=== PATIENT | male | born 1950 | race Caucasian/White ===

== ENCOUNTER 2019-06-20 19:41 | Emergency (ER) | payer OTHER, MEDICARE ==
[~2019-06-20] VITALS: Ht 172.7 cm; Wt 81.8 kg
[2019-06-20] MEDS ORDERED: 0.9 % SODIUM CHLORIDE 10 ML DISP.SYRIN. IV PRN (19:45)
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
[2019-06-20] MEDS ORDERED: IOHEXOL 300 MG/ML 75 ML VIAL. IV ONE (20:00)
[2019-06-20] MEDS ORDERED: LIDOCAINE 1% 50 ML VIAL. IV ONE (20:00)
[2019-06-20] MEDS ORDERED: CONTRAST GIVEN MC PRN (20:15)
[2019-06-20 20:41] LABS: BASO # 0.1 x10^3/uL (0.0-0.2); BASO % 1 % (0-3); EOS # 0.1 x10^3/uL (0.0-0.7); EOS % 1 % (0-3); HEMATOCRIT 43.4 % (39.0-53.0); HEMOGLOBIN 14.3 g/dL (13.0-17.5); LYMPH % 14 % (24-48); MEAN CORPUSCULAR HEMOGLOBIN 32 pg (25-35); MEAN CORPUSCULAR HGB CONC 33 g/dL (31-37); MEAN CORPUSCULAR VOLUME 96 fL (79-100); MONO % 7 % (0-9); NEUT # 11.3 x10^3uL (1.8-7.7); NEUT % 78 % (31-73); PLATELET COUNT 235 x10^3/uL (140-400); RED BLOOD COUNT 4.54 x10^6/uL (4.30-5.70); RED CELL DISTRIBUTION WIDTH 13.1 % (11.5-14.5); WHITE BLOOD COUNT 14.5 x10^3/uL (4.0-11.0)
[2019-06-20 20:51] LABS: CALCIUM 8.9 mg/dL (8.5-10.1); CREATININE 1.1 mg/dL (0.7-1.3); GFR 66.8; POTASSIUM 3.3 mmol/L (3.5-5.1)
[2019-06-20 20:58] LABS: ALBUMIN 3.8 g/dL (3.4-5.0); ALBUMIN/GLOBULIN RATIO 1.3 (1.0-1.7); TOTAL BILIRUBIN 0.3 mg/dL (0.2-1.0); TOTAL PROTEIN 6.7 g/dL (6.4-8.2)
[2019-06-20] MEDS ORDERED: LIDOCAINE 1% Multi-Dose 20 ML VIAL. ONE ×2 (21:44→21:56)
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
--- NOTE | 2019-06-20 22:26 | RAD ---
EXAM: AP and lateral views left tibia/fibula DATE: 06/20/2019 8:37 PM INDICATION: Left lower leg pain COMPARISON: No Prior FINDINGS/ IMPRESSION: No evidence of acute fracture or dislocation. Soft tissue swelling about the left lower extremity. Electronically signed by: Ulices Henriquez MD (06/20/2019 10:23 PM) [id number]
[2019-06-20] MEDS ORDERED: LIDOCAINE 1% Multi-Dose 20 ML VIAL. IJ ONE (22:30)
[2019-06-20 22:37] LABS: BARBITURATES NEG (NEG); BENZODIAZEPINES NEG (NEG); CANNABINOIDS POS (NEG); COCAINE NEG (NEG); METHADONE NEG (NEG); OPIATES POS (NEG); PHENCYCLIDINE NEG (NEG)
[2019-06-20 22:39] LABS: AMPHETAMINE/METHAMPHETAMINE NEG (NEG)
[2019-06-20 22:42] LABS: BILIRUBIN,URINE NEG (NEG); CLARITY,URINE CLEAR; COLOR,URINE YELLOW; GLUCOSE,URINE NEG (NEG); NITRITE,URINE NEG (NEG); UROBILINOGEN,URINE 0.2 mg/dL (0.2 mg/dL)
[2019-06-20 22:43] LABS: BACTERIA,URINE FEW /HPF (0-FEW); GRANULAR CASTS,URINE OCC /HPF; RBC,URINE 20-40 /HPF (0-2); SQUAMOUS EPITHELIAL CELL,UR OCC /LPF; WBC,URINE OCC /HPF (0-4)
[2019-06-20] MEDS ORDERED: guaiFENesin/CODEINE 100mg/10mg 5 ML LIQUID PO PRN (23:45)
[2019-06-20] MEDS ORDERED: ALBUTEROL SULFATE 2.5 MG/3 ML NEBU. NEB ONE (23:45)
--- NOTE | 2019-06-21 01:43 | EKG ---
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
[2019-06-21] MEDS ORDERED: MORPHINE SULFATE 4 MG/ML DISP.SYRIN. ONE (02:01)
[2019-06-21] MEDS ORDERED: MORPHINE SULFATE 4 MG/ML DISP.SYRIN. IV ONE ×3 (02:15→12:30)
[2019-06-21] MEDS ORDERED: TAMSULOSIN 0.4 MG CAP.ER.24H. PO ONE (02:15)
[2019-06-21] MEDS ORDERED: LISINOPRIL 10 MG TABLET ONE (06:53)
[2019-06-21] MEDS ORDERED: LISINOPRIL 10 MG TABLET PO ONE (07:00)
[2019-06-21 07:05] VITALS: BP 135/87
[2019-06-21] MEDS ORDERED: IV NORMAL SALINE 1,000ML 1,000 ML IV ONE (07:15)
== END 2019-06-21 12:40 | disposition short-term general hospital (02) ==
LOC: ER 19:41
DX: S32.048A Other fracture of fourth lumbar vertebra, initial encounter for closed fracture (principal); S52.511A Displaced fracture of right radial styloid process, initial encounter for closed fracture; S61.411A Laceration without foreign body of right hand, initial encounter; S80.11XA Contusion of right lower leg, initial encounter; S20.211A Contusion of right front wall of thorax, initial encounter; R55 Syncope and collapse; V47.5XXA Car driver injured in collision with fixed or stationary object in traffic accident, initial encounter; Y93.89 Activity, other specified; Y92.89 Other specified places as the place of occurrence of the external cause; Y99.8 Other external cause status
CPT/HCPCS: 29125; 36415; 70450; 71260; 72125; 72128; 72131; 73110; 73130; 73590; 74177; 80053; 80307; 81001; 85025; 85610; 85730; 93005; 94640; 96374; 96376; 99285; G0480; J2270; J7613; Q9967; J7030

== ENCOUNTER 2020-04-22 12:37 | Emergency (ER) | payer MEDICARE, OTHER ==
[~2020-04-22] VITALS: Ht 172.7 cm; Wt 87.0 kg
[2020-04-22 12:48] VITALS: BP 143/90
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
--- NOTE | 2020-04-22 14:10 | RAD ---
Examination: XR RIBS MIN 3 VIEWS LT W/PA CHEST History: LEFT LOWER RIB PAIN, INJURY Comparison/Correlation: 06/20/2019 CT chest abdomen and pelvis with contrast Findings: Frontal view of the chest and 4 images of the left ribs were obtained. Heart size and pulmonary vessels are normal. No pneumothorax. No infiltrate or effusion. Calcified gr anulomas are present. Left ribs are intact. Calcific density involving the left upper quadrant measur es 1.2 cm diameter corresponding to known renal calculus. Impression: No infiltrate. No left rib fracture. Left renal calculus. Electronically signed by: Willian Escoto MD (04/22/2020 2:08 PM) [id number]
[2020-04-22] MEDS ORDERED: HYDR-3165 PO (14:24)
== END 2020-04-22 14:30 | disposition home or self-care (01) ==
LOC: ER 12:37
DX: R07.81 Pleurodynia (principal); R05 Cough; R06.02 Shortness of breath; I10 Essential (primary) hypertension; Z98.890 Other specified postprocedural states
CPT/HCPCS: 71101; 99283; G0238

== ENCOUNTER 2021-05-15 08:15 | Emergency (ER) | payer MEDICARE, OTHER ==
[~2021-05-15] VITALS: Ht 172.7 cm; Wt 97.0 kg
[~2021-05-15 08:15] MED LIST: HYDR-3165 PO
[2021-05-15 08:27] VITALS: BP 143/71
--- NOTE | 2021-05-15 08:54 | PHYS DOC ---
Past History Past Medical History: Hypertension, Other Additional Past Medical Histor: COVID Past Surgical History: No Surgical History Alcohol Use: None General Adult EDM: Chief Complaint: RIB PAIN HPI: HPI: 70-year-old male presents with right-sided flank pain. He has had intermittent pain on and off the feels similar to kidney stones he has had in the past. He has not had increased urinary frequency, dysuria. The pain comes and goes in waves. It is currently 2 out of 10. Denies fever or chills. Review of Systems: Review of Systems: Constitutional: Denies fever or chills Eyes: Denies change in visual acuity HENT: Denies nasal congestion or sore throat Respiratory: Denies cough or shortness of breath Cardiovascular: Denies chest pain or edema GI: Denies abdominal pain, nausea, vomiting, bloody stools or diarrhea : Denies dysuria Musculoskeletal: Right flank pain Integument: Denies rash Neurologic: Denies headache, focal weakness or sensory changes Endocrine: Denies polyuria or polydipsia Lymphatic: Denies swollen glands Psychiatric: Denies depression or anxiety Allergies: Allergies: Allergies Coded Allergies Type Severity Reaction Last Updated Verified No Known Drug Allergies 06/20/19 No Physical Exam: PE: Constitutional: Well developed, well nourished, obese, no acute distress, non- toxic appearance. [] HENT: Normocephalic, atraumatic, bilateral external ears normal, oropharynx moist, no oral exudates, nose normal. [] Eyes: PERRLA, EOMI, conjunctiva normal, no discharge. [] Neck: Normal range of motion, no tenderness, supple, no stridor. [] Cardiovascular: Heart rate regular rhythm, no murmur [] Lungs & Thorax: Bilateral breath sounds clear to auscultation [] Abdomen: Bowel sounds normal, soft, no tenderness, no masses, no pulsatile masses. [] Skin: Warm, dry, no erythema, no rash. [] Back: No tenderness, no CVA tenderness. [] Extremities: No tenderness, no cyanosis, no clubbing, ROM intact, no edema. [] Neurologic: Alert and oriented X 3, normal motor function, normal sensory function, no focal deficits noted. [] Psychologic: Affect normal, judgement normal, mood normal. [] Current Patient Data: Vital Signs: Vital Signs Date Time Temp Pulse Resp B/P (MAP) Pulse Ox O2 Delivery O2 Flow Rate FiO2 05/15/21 08:27 98.8 95 16 143/71 (95) 97 EKG: EKG: [] Radiology/Procedures: Radiology/Procedures: [] Impressions: Exam Date: 05/15/2021 8:[address] ABDOMEN+PELVIS WO Indication: Reason: Right flank pain / Spl. Instructions: / History: . TECHNIQUE: CT examination of the abdomen and pelvis was performed without oral or intravenous contrast. One or more of the following dose reduction techniques were utilized: *Automated exposure control (AEC) *Adjustment of mA and/or kV according to patient size *Use of iterative reconstruction technique *CT scan done according to ALARA, or ALARA/IMAGE GENTLY FINDINGS: The visualized lung bases are clear. The liver, gallbladder, spleen, pancreas, and adrenal glands are normal. There are bilateral renal cysts. There are bilateral nonobstructing renal calculi measuring up to 1 mm on the right and 11 mm on the left. The kidneys are otherwise normal bilaterally. No hydronephrosis or hydroureter is seen. No ureteral or bladder calculi are seen. Urinary bladder is normal in appearance. Prostate gland is enlarged up to 5 cm and contains small calcifications. Diverticulosis coli is seen without bowel obstruction or inflammation. The appendix is normal. Small bilateral fat-containing inguinal hernias are noted. Mild atherosclerotic calcifications are seen. No lymphadenopathy or ascites is seen. Degenerative changes are seen in the spine. IMPRESSION: Bilateral nonobstructing renal calculi. No hydronephrosis or hydroureter. Bilateral renal cysts noted. Diverticulosis coli without bowel inflammation or obstruction. Electronically signed by: Libby Llanos MD (05/15/2021 9:13 AM) [facility] DICTATED AND SIGNED BY: LIBBY LLANOS MD DATE: 05/15/21 0901 CC: MICHELA NUGENT DO; PCP,NO ~MTH0 0 Heart Score: C/O Chest Pain: N/A Risk Factors: Risk Factors: DM, Current or recent (<one month) smoker, HTN, HLP, family history of CAD, obesity. Risk Scores: Score 0 - 3: 2.5% MACE over next 6 weeks - Discharge Home Score 4 - 6: 20.3% MACE over next 6 weeks - Admit for Clinical Observation Score 7 - 10: 72.7% MACE over next 6 weeks - Early Invasive Strategies Course & Med Decision Making: Course & Med Decision Making Pertinent Labs and Imaging studies reviewed. (See chart for details) The patient's urinalysis is negative for infection. The CT abdomen pelvis is negative for acute findings. I reviewed the CT myself and the patient does have constipation especially on the right ascending side. This could be the cause of the patient's pain. I advised that he do a bowel cleanout with magnesium citrate. He is stable for discharge at this time. [] Dragon Disclaimer: Dragon Disclaimer: This electronic medical record was generated, in whole or in part, using a voice recognition dictation system. Departure Departure: Impression: Primary Impression: Constipation Disposition: HOME / SELF CARE / HOMELESS Condition: STABLE Referrals: PCP,JOSE (PCP) Patient Instructions: Constipation, Adult, [id number] MICHELA NUGENT DO May 15, 2021 08:54
--- NOTE | 2021-05-15 09:15 | RAD ---
Exam Date: 05/15/2021 8:[address] ABDOMEN+PELVIS WO Indication: Reason: Right flank pain / Spl. Instructions: / History: . TECHNIQUE: CT examination of the abdomen and pelvis was performed without oral or intravenous contra st. One or more of the following dose reduction techniques were utilized: *Automated exposure control (AEC) *Adjustment of mA and/or kV according to patient size *Use of iterative reconstruction technique *CT scan done according to ALARA, or ALARA/IMAGE GENTLY FINDINGS: The visualized lung bases are clear. The liver, gallbladder, spleen, pancreas, and adrenal glands are normal. There are bilateral renal cysts. There are bilateral nonobstructing renal calculi measuring up to 1 mm on the right and 11 mm on the left. The kidneys are otherwise normal bilaterally. No hydronephrosis or hydroureter is seen. No ureteral or bladder calculi are seen. Urinary bladder is normal in appearance. Prostate gland is enlarged up to 5 cm and contains small calcifications. Diverticulosis coli is seen without bowel obstruction or inflammation. The appendix is normal. Smal l bilateral fat-containing inguinal hernias are noted. Mild atherosclerotic calcifications are seen. No lymphadenopathy or ascites is seen. Degenerative changes are seen in the spine. IMPRESSION: Bilateral nonobstructing renal calculi. No hydronephrosis or hydroureter. Bilateral renal cysts noted. Diverticulosis coli without bowel inflammation or obstruction. Electronically signed by: Sundeep Llanos MD (05/15/2021 9:13 AM) [facility]
[2021-05-15 09:41] LABS: BACTERIA,URINE 0 /HPF (0-FEW); BILIRUBIN,URINE NEG (NEG); CLARITY,URINE CLEAR; COLOR,URINE YELLOW; GLUCOSE,URINE NEG (NEG); NITRITE,URINE NEG (NEG); SQUAMOUS EPITHELIAL CELL,UR FEW /LPF; UROBILINOGEN,URINE 0.2 mg/dL (0.2 mg/dL)
== END 2021-05-15 10:02 | disposition home or self-care (01) ==
LOC: ER 08:15
DX: K59.00 Constipation, unspecified (principal); I10 Essential (primary) hypertension
CPT/HCPCS: 74176; 81001; 99284

== ENCOUNTER 2021-05-29 15:28 | Emergency (ER) | payer MEDICARE, OTHER ==
[~2021-05-29] VITALS: Ht 172.7 cm; Wt 90.3 kg
[2021-05-29] MEDS ORDERED: IOHEXOL 300 MG/ML 75 ML VIAL. IV ONE (16:45)
[2021-05-29] MEDS ORDERED: METOCLOPRAMIDE HCL 10 MG/2 ML VIAL. IVP ONE (16:45)
[2021-05-29] MEDS ORDERED: IV NORMAL SALINE 1,000ML 1,000 ML IV ONE (16:45)
--- NOTE | 2021-05-29 16:47 | PHYS DOC ---
Past History Past Medical History: Hypertension, Other Additional Past Medical Histor: COVID Past Surgical History: No Surgical History Alcohol Use: Occasionally Drug Use: None General Adult EDM: Chief Complaint: ABDOMINAL PAIN HPI: HPI: Patient is a 70-year-old male that presents today with upper abdominal abdominal pain. Patient states the pain has been going on for little over 2 to 3 weeks, he states he was here on May 15, 2021 and had test done and labs done and was told he had constipation and was sent home for treatment of that. Patient states on May 25, 2021 he was seen in his primary care doctor's office at the [facility] and was told he had some inflammation in the upper abdomen and that they would like to do a EGD on him, but since he had Covid at the end of April they told him they would have to wait 12 weeks to have that done. Patient is here today with continued abdominal pain, he has nausea vomiting he states he has been able to keep some fluids down but has been unable to eat. His states that he is only had 3 crackers in the last 24 hours. When asked about his last bowel movement he said he had a small 1 on May 28, 2021 but it was not normal for him. Review of Systems: Review of Systems: Constitutional: Denies fever or chills Eyes: Denies change in visual acuity HENT: Denies nasal congestion or sore throat Respiratory: Denies cough or shortness of breath Cardiovascular: Denies chest pain or edema GI: Abdominal pain, nausea, and vomiting denies bloody stools or diarrhea : Denies dysuria Musculoskeletal: Denies back pain or joint pain Integument: Denies rash Neurologic: Denies headache, focal weakness or sensory changes Endocrine: Denies polyuria or polydipsia Lymphatic: Denies swollen glands Psychiatric: Denies depression or anxiety Allergies: Allergies: Allergies Coded Allergies Type Severity Reaction Last Updated Verified No Known Drug Allergies 06/20/19 No Physical Exam: PE: Constitutional: Well developed, well nourished, moderate distress, non-toxic appearance. [] HENT: Normocephalic, atraumatic, bilateral external ears normal, oropharynx moist, no oral exudates, nose normal. [] Eyes: PERRLA, EOMI, conjunctiva normal, no discharge. [] Neck: Normal range of motion, no tenderness, supple, no stridor. [] Cardiovascular:Heart rate regular Lung: CTA no increase work of breathing Abdominal: Bowel sounds normal in all 4 quadrants, tenderness noted in the epigastric area, abdomen is rounded and distended. Skin: Warm, dry, no erythema, no rash. [] Back: No tenderness, no CVA tenderness. [] Extremities: No tenderness, no cyanosis, no clubbing, ROM intact, no edema. [] Neurologic: Alert and oriented X 3, normal motor function, normal sensory function, no foca\ Current Patient Data: Labs: Laboratory Tests Test 05/29/21 17:13 05/29/21 18:41 White Blood Count 15.6 x10^3/uL Red Blood Count 4.59 x10^6/uL Hemoglobin 14.3 g/dL Hematocrit 41.8 % Mean Corpuscular Volume 91 fL Mean Corpuscular Hemoglobin 31 pg Mean Corpuscular Hemoglobin Concent 34 g/dL Red Cell Distribution Width 13.3 % Platelet Count 484 x10^3/uL Neutrophils (%) (Auto) 74 % Lymphocytes (%) (Auto) 15 % Monocytes (%) (Auto) 10 % Eosinophils (%) (Auto) 0 % Basophils (%) (Auto) 1 % Neutrophils # (Auto) 11.6 x10^3uL Lymphocytes # (Auto) 2.4 x10^3/uL Monocytes # (Auto) 1.5 x10^3/uL Eosinophils # (Auto) 0.0 x10^3/uL Basophils # (Auto) 0.1 x10^3/uL Segmented Neutrophils % 77 % Lymphocytes % 18 % Monocytes % 5 % Platelet Estimate Increased Sodium Level 136 mmol/L Potassium Level 3.5 mmol/L Chloride Level 99 mmol/L Carbon Dioxide Level 23 mmol/L Anion Gap 14 Blood Urea Nitrogen 28 mg/dL Creatinine 1.3 mg/dL Estimated GFR (Cockcroft-Gault) 54.9 BUN/Creatinine Ratio 22 Glucose Level 132 mg/dL Calcium Level 9.2 mg/dL Total Bilirubin 1.0 mg/dL Aspartate Amino Transf (AST/SGOT) 13 U/L Alanine Aminotransferase (ALT/SGPT) 25 U/L Alkaline Phosphatase 83 U/L Total Protein 7.8 g/dL Albumin 4.2 g/dL Albumin/Globulin Ratio 1.2 Lipase 86 U/L Urine Collection Type Clean catch Urine Color Yellow Urine Clarity Clear Urine pH 6.0 Urine Specific Union 1.015 Urine Protein 30 mg/dl Urine Glucose (UA) Neg mg/dL Urine Ketones (Stick) >=160 mg/dL Urine Blood Trace Urine Nitrite Neg Urine Bilirubin Small Urine Urobilinogen Dipstick 0.2 mg/dL Urine Leukocyte Esterase Neg Urine RBC 1-2 /HPF Urine WBC Occ /HPF Urine Squamous Epithelial Cells Occ /LPF Urine Bacteria 0 /HPF Urine Opiates Screen Neg Urine Methadone Screen Neg Urine Barbiturates Neg Urine Phencyclidine Screen Neg Urine Amphetamine/Methamphetamine Neg Urine Benzodiazepines Screen Neg Urine Cocaine Screen Neg Urine Cannabinoids Screen Pos Urine Ethyl Alcohol Neg Current Medications Medications (Trade) Dose Ordered Sig/Rubio Route PRN Reason Start Time Stop Time Status Last Admin Dose Admin Sodium Chloride 1,000 ml @ 1,000 mls/hr 1X ONCE IV 05/29/21 16:45 05/29/21 17:44 DC 05/29/21 17:08 Metoclopramide HCl (Reglan Vial) 10 mg 1X ONCE IVP 05/29/21 16:45 05/29/21 16:56 DC 05/29/21 17:09 Fentanyl Citrate (Fentanyl 2ml Vial) 50 mcg 1X ONCE IVP 05/29/21 16:45 05/29/21 16:56 DC 05/29/21 17:12 Iohexol (Omnipaque 300 Mg/ml) 75 ml 1X ONCE IV 05/29/21 16:45 05/29/21 16:56 DC 05/29/21 16:45 Famotidine (Pepcid Vial) 20 mg 1X ONCE IVP 05/29/21 17:00 05/29/21 17:01 DC 05/29/21 17:11 Info (Do NOT chart on this entry -- for MONITORING) 1 each PRN DAILY PRN MC SEE COMMENTS 05/29/21 17:00 05/31/21 16:59 Multi-Ingredient Mouthwash/Gargle (Gi Cocktail) 20 ml 1X ONCE PO 05/29/21 19:30 05/29/21 19:31 DC Vital Signs: Vital Signs Date Time Temp Pulse Resp B/P (MAP) Pulse Ox O2 Delivery O2 Flow Rate FiO2 05/29/21 18:46 18 98 Room Air 05/29/21 18:14 97.6 80 16 136/97 (110) 98 1/24/22 17:12 18 98 Room Air EKG: EKG: [] Radiology/Procedures: Radiology/Procedures: REASON: abdominal pain, n/v OMNI 300 75CC PROCEDURE: CT ABD PELV W/ IV CONTRST ONLY Study: CT abdomen/pelvis with intravenous contrast Indication: Abdominal pain. Nausea and vomiting. Comparison: 05/15/2021 Technique: Helical CT imaging performed of the abdomen and pelvis after the intravenous administration of 75 cc Omnipaque 300 contrast. Sagittal and coronal reformats were obtained. One or more of the following individualized dose reduction techniques were utilized for this examination: 1. Automated exposure control 2. Adjustment of the mA and/or kV according to patient size 3. Use of iterative reconstruction technique. Findings: No significant new finding at the lower chest. Unchanged liver, gallbladder, biliary tree, spleen and adrenal glands. Mild inflammatory changes along the second segment of the duodenum and seen interpo sed. The duodenum and pancreatic head/uncinate process. Pancreatic parenchymal attenuation is relatively homogeneous. Edematous wall thickening of the second portion of the duodenum and mucosal enhancement. Possible duodenal ulcer as seen on image 29 series 2. No fluid collection adjacent to the duodenum or pancreas. No pneumoperitoneum. Redemonstration of multiple renal cystic foci the larger of which measure cystic density. Several are too small to characterize. A lobulated region of low density measuring between 10 and 15 Hounsfield units is seen partially exophytic off the superomedial aspect of the right kidney. This has been present dating back to 2016. Nonobstructing dominant interpolar stone on the left and an adjacent punctate stone. Unremarkable bladder. Mild enlargement of the prostate with heterogeneous internal density to include left paramidline cystic area as well as central mineralization. The appearance is unchanged from the prior. Colonic diverticulosis without diverticulitis. Normal appendix. Nonobstructed small bowel. Duodenal findings as described above. Mild scattered calcified and noncalcified atheromatous plaque. No lymphadenopathy by size criteria. Fat-containing umbilical hernia with trace extension of just the anterior wall of a short segment of small bowel into the hernia defect, image 50 series 2. Redemonstration of bilateral hip arthrosis, periarticular sclerosis at the SI joints, mainly inferiorly, and a chronic deformity of L4. Central canal stenosis at L3-L4 and L4-L5. Impression: 1. Inflammatory changes centered around the second portion of the duodenum where there is edematous wall thickening and a component of mucosal irregularity. The leading consideration is peptic ulcer disease. No uncontained perforation or abscess. 2. Small fat-containing umbilical hernia. Just the anterior portion of a short segment of small bowel extends towards the hernia defect (image 50 series 2). No CT manifestations of incarceration/strangulation. Correlate for pinpoint tenderness. 3. Chronic/unchanged observations described in the body of the report to include nonobstructing intrarenal stones on the left, several renal cystic foci and colonic diverticulosis. Electronically signed by: JESSICA CERDA MD (05/29/2021 7:08 PM) [facility] [] Heart Score: C/O Chest Pain: N/A Risk Factors: Risk Factors: DM, Current or recent (<one month) smoker, HTN, HLP, family history of CAD, obesity. Risk Scores: Score 0 - 3: 2.5% MACE over next 6 weeks - Discharge Home Score 4 - 6: 20.3% MACE over next 6 weeks - Admit for Clinical Observation Score 7 - 10: 72.7% MACE over next 6 weeks - Early Invasive Strategies Course & Med Decision Making: Course & Med Decision Making Pertinent Labs and Imaging studies reviewed. (See chart for details) 1929 did review radiological and laboratory results with patient. Did inform him that his CT scan is unchanged and still continues to show swelling in the duodenum area. Patient states his pain has improved since been giving him fentanyl, Pepcid, Reglan and IV fluids. He is sitting up and appears in no acute distress. Patient will be given a GI cocktail here in the department will also write for Carafate on an outpatient basis along with omeprazole for daily use. Did inform patient that he is in need of a GI specialist and he is requesting that we give him the name of a GI specialist that can possibly get him in before 3 months. I will give him Dr. Mills's name and he can follow-up with him as needed. Also informed him that [facility] [address] Mills can get to him. Kylee Disclaimer: Kylee Disclaimer: This electronic medical record was generated, in whole or in part, using a voice recognition dictation system. Departure Departure: Impression: Primary Impression: Abdominal pain Qualified Codes: R10.13 - Epigastric pain Disposition: HOME / SELF CARE / HOMELESS Condition: STABLE Referrals: PCPJOSE (PCP) MARA ADLER MD Patient Instructions: Abdominal Pain, Cardiac Diet, [id number], Diet for Gastroesophageal Reflux Disease, Adult Additional Instructions: Clear liquids for the next 24 hours and then advance as tolerated, avoiding alcohol, nicotine, caffeine, spicy foods, and nonsteroidal anti-inflammatory medications. Carafate take 1 g by mouth 4 times daily, give 1 hour before meals and at bedtime. Prilosec 20 daily Follow-up with your GI specialist or Dr. Adler for further management of your abdominal pain Return to the emergency department for increased pain not relieved by Tylenol, development of a fever, vomiting blood, or any having shortness of air or chest pain. Scripts Omeprazole Magnesium (PRILOSEC OTC) 20 Mg Tablet.dr 1 TAB PO DAILY for abdominal pain for 30 Days, #30 TAB 3 Refills take one hour before meals and at bedtime Prov: MAYRA [employer]CON [employer] 05/29/21 Sucralfate (CARAFATE) 1 Gm Tablet 1 TAB PO QID for stomach pain for 30 Days, #120 TAB 3 Refills Prov: MAYRA [employer] 05/29/21 MAYRA F[employer] May 29, 2021 16:47
[2021-05-29] MEDS ORDERED: FAMOTIDINE 20 MG/2 ML VIAL IVP ONE (17:00)
[2021-05-29] MEDS ORDERED: CONTRAST GIVEN. MC PRN (17:00)
[2021-05-29 17:41] LABS: BASO # 0.1 x10^3/uL (0.0-0.2); BASO % 1 % (0-3); EOS % 0 % (0-3); HEMATOCRIT 41.8 % (39.0-53.0); HEMOGLOBIN 14.3 g/dL (13.0-17.5); LYMPH # 2.4 x10^3/uL (1.0-4.8); LYMPH % 15 % (24-48); MEAN CORPUSCULAR HEMOGLOBIN 31 pg (25-35); MEAN CORPUSCULAR HGB CONC 34 g/dL (31-37); MEAN CORPUSCULAR VOLUME 91 fL (79-100); MONO # 1.5 x10^3/uL (0.0-1.1); MONO % 10 % (0-9); NEUT # 11.6 x10^3uL (1.8-7.7); NEUT % 74 % (31-73); PLATELET COUNT 484 x10^3/uL (140-400); RED BLOOD COUNT 4.59 x10^6/uL (4.30-5.70); RED CELL DISTRIBUTION WIDTH 13.3 % (11.5-14.5); WHITE BLOOD COUNT 15.6 x10^3/uL (4.0-11.0)
[2021-05-29 18:19] LABS: CALCIUM 9.2 mg/dL (8.5-10.1); CREATININE 1.3 mg/dL (0.7-1.3); GFR 54.9; POTASSIUM 3.5 mmol/L (3.5-5.1)
[2021-05-29 18:24] LABS: ALBUMIN 4.2 g/dL (3.4-5.0); ALBUMIN/GLOBULIN RATIO 1.2 (1.0-1.7); TOTAL PROTEIN 7.8 g/dL (6.4-8.2)
[2021-05-29 19:02] LABS: BARBITURATES NEG (NEG); BENZODIAZEPINES NEG (NEG); CANNABINOIDS POS (NEG); COCAINE NEG (NEG); METHADONE NEG (NEG); OPIATES NEG (NEG); PHENCYCLIDINE NEG (NEG)
[2021-05-29 19:03] LABS: % LYMPHS 18 % (24-48); % MONOS 5 % (0-10); % SEGS 77 % (35-66); PLT ESTIMATE INCREASED (ADEQUATE)
[2021-05-29 19:07] LABS: AMPHETAMINE/METHAMPHETAMINE NEG (NEG)
--- NOTE | 2021-05-29 19:10 | RAD ---
Study: CT abdomen/pelvis with intravenous contrast Indication: Abdominal pain. Nausea and vomiting. Comparison: 05/15/2021 Technique: Helical CT imaging performed of the abdomen and pelvis after the intravenous administratio n of 75 cc Omnipaque 300 contrast. Sagittal and coronal reformats were obtained. One or more of the following individualized dose reduction techniques were utilized for this examinat ion: 1. Automated exposure control 2. Adjustment of the mA and/or kV according to patient size 3. Use of iterative reconstruction technique. Findings: No significant new finding at the lower chest. Unchanged liver, gallbladder, biliary tree, spleen and adrenal glands. Mild inflammatory changes crissy g the second segment of the duodenum and seen interposed. The duodenum and pancreatic head/uncinate p rocess. Pancreatic parenchymal attenuation is relatively homogeneous. Edematous wall thickening of th e second portion of the duodenum and mucosal enhancement. Possible duodenal ulcer as seen on image 29 series 2. No fluid collection adjacent to the duodenum or pancreas. No pneumoperitoneum. Redemonstration of multiple renal cystic foci the larger of which measure cystic density. Several are too small to characterize. A lobulated region of low density measuring between 10 and 15 Hounsfield units is seen partially exophytic off the superomedial aspect of the right kidney. This has been pres ent dating back to 2016. Nonobstructing dominant interpolar stone on the left and an adjacent punctat e stone. Unremarkable bladder. Mild enlargement of the prostate with heterogeneous internal density t o include left paramidline cystic area as well as central mineralization. The appearance is unchanged from the prior. Colonic diverticulosis without diverticulitis. Normal appendix. Nonobstructed small bowel. Duodenal f indings as described above. Mild scattered calcified and noncalcified atheromatous plaque. No lymphadenopathy by size criteria. F at-containing umbilical hernia with trace extension of just the anterior wall of a short segment of s mall bowel into the hernia defect, image 50 series 2. Redemonstration of bilateral hip arthrosis, periarticular sclerosis at the SI joints, mainly inferior ly, and a chronic deformity of L4. Central canal stenosis at L3-L4 and L4-L5. Impression: 1. Inflammatory changes centered around the second portion of the duodenum where there is edematous w all thickening and a component of mucosal irregularity. The leading consideration is peptic ulcer dis ease. No uncontained perforation or abscess. 2. Small fat-containing umbilical hernia. Just the anterior portion of a short segment of small bowel extends towards the hernia defect (image 50 series 2). No CT manifestations of incarceration/strangu lation. Correlate for pinpoint tenderness. 3. Chronic/unchanged observations described in the body of the report to include nonobstructing intra renal stones on the left, several renal cystic foci and colonic diverticulosis. Electronically signed by: JESSICA CERDA MD (05/29/2021 7:08 PM) [facility]
[2021-05-29 19:16] LABS: BILIRUBIN,URINE SMALL (NEG); CLARITY,URINE CLEAR; COLOR,URINE YELLOW; GLUCOSE,URINE NEG (NEG)
[2021-05-29 19:17] LABS: BACTERIA,URINE 0 /HPF (0-FEW); NITRITE,URINE NEG (NEG); SQUAMOUS EPITHELIAL CELL,UR OCC /LPF; UROBILINOGEN,URINE 0.2 mg/dL (0.2 mg/dL); WBC,URINE OCC /HPF (0-4)
[2021-05-29] MEDS ORDERED: LIDO:MAALOX 1:1 20 ML SINGLE DOSE. PO ONE (19:30)
[2021-05-29 19:33] VITALS: BP 129/91
[2021-05-29] MEDS ORDERED: SUCR1TAB35 PO (19:40)
[2021-05-29] MEDS ORDERED: OMEP20TA63 PO (19:40)
== END 2021-05-29 19:45 | disposition home or self-care (01) ==
LOC: ER 15:28
DX: R10.13 Epigastric pain (principal); R11.2 Nausea with vomiting, unspecified; I10 Essential (primary) hypertension
CPT/HCPCS: 36415; 74177; 80053; 80307; 81001; 83690; 85007; 85025; 96361; 96374; 96375; 99285; J2765; J3010; J3490; J7030; Q9967